=== PATIENT | female | born 1990 | race Caucasian/White ===

== ENCOUNTER 2021-01-13 19:07 | Emergency (ER) | payer MEDICAID, OTHER, SELFPAY ==
--- NOTE | ~2021-01-13 | XR_ITS ---
EXAMINATION: XR KNEE, LEFT CLINICAL INFORMATION: Fall from stairs. COMPARISON: None TECHNIQUE: Two views of the left knee. FINDINGS: No acute fractures or malalignment. No significant degenerative changes. No erosions or chondrocalcinosis. Normal appearance of the soft tissues. No joint effusion. XR/XR knee LT 2V IMPRESSION: No acute fractures or malalignment.
[2021-01-13 21:28] VITALS: BP 110/83; PULSE 81; RESP 18; TEMP 37.1; O2SAT 99; BMI 30.9
--- NOTE | 2021-01-13 23:00 | ED.FALL ---
HPI - Fall General Chief Complaint: Fall Stated Complaint: L knee pain Time Seen by Provider: 01/13/21 22:02 Source: patient Mode of arrival: ambulatory Limitations: no limitations History of Present Illness HPI Narrative: Patient slipped and fell about 7 wooden steps inside the house landed on her left knee complaining of pain on the left knee with slight swelling. No prior history of knee problems , patient able to ambulate with pain no other injuries Related Data Previous Rx's Medication Instructions Recorded ibuprofen 600 mg tablet 600 mg PO Q6H PRN #20 tab 01/13/21 Allergies Allergy/AdvReac Type Severity Reaction Status Date / Time No Known Allergies Allergy Verified 01/13/21 23:04 Review of Systems Review of Systems: Yes all other systems are reviewed and are negative FOR[facility]LY [facility] Past Medical History Medical History Diabetes Hyperinsulinemia Social History Social History Advance Directives: No Advance Directives Information Provided: No Patient : No Physical Exam Vital Signs: Vital Signs: Last Vital Signs Temp 98.8 F 01/13/21 21:28 Pulse 81 01/13/21 21:28 Resp 18 01/13/21 21:28 BP 110/83 01/13/21 21:28 Pulse Ox 99 01/13/21 21:28 Body Mass Index 30.9 Appearance: Alert. Oriented X3. No acute distress. ENT: Pharynx normal. Oral Mucosa moist Neck: Normal inspection. Neck supple. CVS: Normal heart rate and rhythm. Pulses normal. Respiratory: No respiratory distress. Equal air entry bilateral, Abdomen: Soft and nontender. Skin: Skin warm and dry. Normal skin color. Normal skin turgor. Extremities: Left knee tenderness at left lateral tibia fibular ligament no knee effusion good range of movement Lindsey's sign and anterior drawer sign negative Neuro: Oriented X 3. Extrem: Knee images: 1. Tenderness at lateral collateral ligament no knee effusion good range of movement MDM - Fall MDM Narrative Medical decision making narrative: Patient tender at left lateral collateral ligaments no joint infusion x-ray negative for any fracture will discharge patient home on knee immobilizer crutches pain medicine Discharge Plan Discharge Clinical Impression: Sprain of knee, lateral collateral ligament Patient Disposition: Home, Self-Care Instructions: Knee Sprain (ED) Additional Instructions: Wear Knee splint for support use crutches for ambulation Avoid going upstairs or downstairs Ibuprofen for pain as needed Follow-up with orthopedics if not better Use cris brandt para suporte usar muletas para deambula??o Evite subir ou descer escadas Ibuprofeno para arlen conforme necess?madi Acompanhamento com ortopedia, se n?o melhor Prescriptions: New ibuprofen 600 mg tablet 600 mg PO Q6H PRN (Reason: pain) Qty: 20 RF: 0 Interventions: ED Discharge Assessment Last Done: 01/13/21 23:18 Discharge Date/Time: 01/13/21 23:19
[2021-01-13] MEDS: Ibuprofen 600 MG TABLET PO (23:11)
== END 2021-01-13 23:19 | disposition home or self-care (01) ==
PROVIDERS: Emergency Provider Internal Medicine
DX: S83.422A Sprain of lateral collateral ligament of left knee, initial encounter (principal); E11.9 Type 2 diabetes mellitus without complications; W01.0XXA Fall on same level from slipping, tripping and stumbling without subsequent striking against object, initial encounter; Y93.9 Activity, unspecified; Y92.008 Other place in unspecified non-institutional (private) residence as the place of occurrence of the external cause; Y99.9 Unspecified external cause status
CPT/HCPCS: 73560; 99283